=== PATIENT | female | born 1950 | race Caucasian/White ===

== ENCOUNTER 2017-03-03 20:02 | Inpatient (IN) | payer OTHER ==
[~2017-03-03] VITALS: Ht 160 cm; Wt 75.2 kg
--- NOTE | ~2017-03-03 | HC ---
[facility] [place] [address] CONSULTATION Name: JIMBO BURR Room #: 201-P [facility] IN M.R.#: [id number] Admission: 03/03/17 Attend Phys: Ryder Lizarraga MD Discharge: 03/05/17 Date of : 52 Report #: [id number] THIS REPORT FOR: //name// CC: ALESSANDRO physician/PCP Ryder Lizarraga DATE OF SERVICE: 03/03/2017 REASON FOR CONSULTATION: Elevated sodium. HISTORY OF PRESENT ILLNESS: The patient is known to have frontal lobe dementia and is not able to provide me with the history. Most of the details of the history were obtained from the medical charts. She is nonverbal at baseline. She presented with what was described as mental status changes. I really do not know what her baseline is, but there was a description that she was leaning on the left side while walking back from the dinner area. They reported some falls. On presentation to the emergency room, she was found to have hypernatremia, thus mandating a nephrology consultation. MEDICATIONS: 1. Trazodone. 2. Melatonin. 3. Oxybutynin. PAST MEDICAL HISTORY: 1. Frontal lobe dementia. 2. Remote history of acute respiratory failure with what was described isopropyl alcohol ingestion. 3. Acute kidney injury. FAMILY HISTORY: Unobtainable given the patient's mental status. SOCIAL HISTORY: She resides in a nursing facility. No reported drug or alcohol abuse. There is a history of isopropyl ingestion back on 08/27 and this was incidental. REVIEW OF SYSTEMS: Given the patient's mental status, completely unobtainable. PHYSICAL EXAMINATION: GENERAL: The patient was disoriented to place, time and person. VITAL SIGNS: Blood pressure 140/93 and temperature 36.6. HEAD AND NECK: Dry mucous membrane. CHEST: No crackles. CARDIOVASCULAR: Regular with no rub detected. ABDOMEN: Soft, nontender. No hepatosplenomegaly. LOWER EXTREMITIES: No edema. [address] [address] CONSULTATION Name: JIMBO BURR Room #: 201-P [facility] IN ..#: [id number] Admission: 03/03/17 Attend Phys: Ryder Lizarraga MD Discharge: 03/05/17 Date of : 52 Report #: [id number] LABORATORY DATA: 1. Urine is significant for nitrites. Culture is still pending. 2. Sodium is 158. 3. Creatinine is 1.8. Looking at her baseline, she was discharged from this facility with a creatinine of 1.7. ASSESSMENT, IMPRESSION AND PLAN: 1. Acute kidney injury. 2. Hypernatremia due to lack of access to free water. 3. Remote history of isopropyl incidental ingestion. 4. Discontinue D5 half normal. 5. Initiate free D5W. 6. Strict input and output. 7. Avoid nephrotoxins. 8. Follow urine culture. 9. Adjust medications accordingly. 10. We will continue to follow along. <ELECTRONICALLY SIGNED> By: Jeanette Lyon MD 03/09/17 08 8 Jeanette Lyon MD /nt
--- NOTE | ~2017-03-03 | EKG ---
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
--- NOTE | ~2017-03-03 | EKG ---
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 : 1950 Requested By: Boaz Nuno Order Number: [id number] MD: King Mcneal Measurements Intervals [place] Rate: 100 P: 55 MA: 115 QRS: -6 QRSD: 81 T: 87 QT: 329 QTc: 425 Interpretive Statements Sinus tachycardia Atrial premature complex Nonspecific ST segment abnormalities Baseline wander in lead(s) V6 Compared to ECG 08/27/2016 17:25:57 No significant change Electronically Signed On 03-04-2017 15:46:01 CDT by King Mcneal [email or web address] <ELECTRONICALLY SIGNED> By: King Mcneal MD 03/04/17 1546 08 08 King Mcneal MD /[facility]
--- NOTE | ~2017-03-03 | EKG ---
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
[~2017-03-03 20:02] MED LIST: AUGMENTIN 875875 MG PO
[2017-03-03 20:04] VITALS: BP 174/79
[2017-03-03 20:34] LABS: HEMATOCRIT 38.9 % (37.0-47.0); HEMOGLOBIN 12.9 gm/dL (12.0-15.0); MCH 31.4 pg (26.0-34.0); MCHC 33.1 g/dL (28.0-37.0); RBC 4.09 mil/uL (4.20-5.00); RDW 15.6 % (10.5-14.5); WBC 9.2 thou/uL (4.0-11.0)
[2017-03-03 20:43] LABS: ANION GAP 10 mmol/L (7-16); BUN 46 mg/dL (7-18); CALCIUM 9.2 mg/dL (8.5-10.1); CHLORIDE 122 mmol/L (98-107); CO2 26 mmol/L (21-32); CREATININE 1.8 mg/dL (0.6-1.0); GLUCOSE 123 mg/dL (74-106); POTASSIUM 3.9 mmol/L (3.5-5.1); SODIUM 158 mmol/L (136-145)
[2017-03-03 20:53] LABS: TROPONIN-I < 0.04 ng/mL (<0.04-0.07)
[2017-03-03 20:54] LABS: APTT 19.4 Seconds (24.5-32.8)
[2017-03-03 21:16] LABS: URINE BILIRUBIN NEGATIVE (Negative); URINE BLOOD TRACE (Negative); URINE COLOR YELLOW; URINE GLUCOSE-RANDOM* NEGATIVE (Negative); URINE KETONES NEGATIVE (Negative); URINE LEUKOCYTES-REFLEX TRACE (Negative); URINE PROTEIN (DIPSTICK) 1+ (Negative); URINE SPECIFIC GRAVITY >= 1.030 (1.003-1.035); URINE UROBILINOGEN 0.2 E.U./dl (0.2-1.0)
[2017-03-03 21:21] LABS: CASTS None Seen /LPF (None Seen); SQUAMOUS 0-3 Few /LPF (0-3); URINE RBC 0-2 Rare /HPF (0-2); URINE WBC-REFLEX 6-15 Few /HPF (0-5)
[2017-03-03 21:22] LABS: CRYSTALS None Seen /LPF (None Seen)
[2017-03-03] MEDS ORDERED: DONEPEZIL HCL10 MG (21:49)
[2017-03-03] MEDS ORDERED: TRAZODONE HCL100 MG PO (21:50)
[2017-03-03] MEDS ORDERED: SEROQUEL 50 MG50 MG PO (21:50)
[2017-03-03] MEDS ORDERED: MELATIN3 MG PO (21:51)
[2017-03-03] MEDS ORDERED: OXYBUTYNIN 5 MG5 M2 PO (21:51)
[2017-03-03 23:45] VITALS: BP 137/72
[2017-03-04 00:40] VITALS: BP 150/93
[2017-03-04 03:45] VITALS: BP 140/93
[2017-03-04 09:09] VITALS: BP 138/83
[2017-03-04 10:57] LABS: FOLIC ACID 19.8 ng/mL (8.6-58.9)
[2017-03-04 11:25] VITALS: BP 129/76
[2017-03-04 15:40] VITALS: BP 128/73
[2017-03-04 19:14] VITALS: BP 137/74
[2017-03-05 03:04] LABS: HEMATOCRIT 34.6 % (37.0-47.0); HEMOGLOBIN 11.6 gm/dL (12.0-15.0); MCH 31.1 pg (26.0-34.0); MCHC 33.6 g/dL (28.0-37.0); MCV 92.5 fL (80.0-100.0); RBC 3.74 mil/uL (4.20-5.00); RDW 14.4 % (10.5-14.5); WBC 11.1 thou/uL (4.0-11.0)
[2017-03-05 03:08] VITALS: BP 144/81
[2017-03-05 03:20] LABS: ALBUMIN 2.8 g/dL (3.4-5.0); CALCIUM 8.4 mg/dL (8.5-10.1); PHOSPHORUS 4.2 mg/dL (2.5-4.9); POTASSIUM 3.4 mmol/L (3.5-5.1); TOTAL BILIRUBIN 0.5 mg/dL (<0.1-1.0); TOTAL PROTEIN 6.3 g/dL (6.4-8.2)
[2017-03-05 08:00] VITALS: BP 128/104
[2017-03-05] MEDS ORDERED: CEFUROXIME500 MG PO (11:29)
== END 2017-03-05 16:30 | DRG 682 ==
LOC: ER 20:02 → EROBS 23:17 → 2N 23:18
PROVIDERS: Emergency Medicine; Nurse Practitioner Family; Psychiatry & Neurology Neurology
DX: N17.9 Acute kidney failure, unspecified (principal); E43 Unspecified severe protein-calorie malnutrition; R57.1 Hypovolemic shock; G93.41 Metabolic encephalopathy; N39.0 Urinary tract infection, site not specified; E87.0 Hyperosmolality and hypernatremia; F03.90 Unspecified dementia, unspecified severity, without behavioral disturbance, psychotic disturbance, mood disturbance, and anxiety; N18.9 Chronic kidney disease, unspecified; Z68.29 Body mass index [BMI] 29.0-29.9, adult
CPT/HCPCS: 10081

== ENCOUNTER 2017-08-04 21:26 | Emergency (ER) | payer OTHER ==
[~2017-08-04] VITALS: Ht 157.5 cm; Wt 72.6 kg
[~2017-08-04 21:26] MED LIST changes: +CEFUROXIME500 MG PO; +DONEPEZIL HCL10 MG; +MELATIN3 MG PO; +OXYBUTYNIN 5 MG5 M2 PO; +SEROQUEL 50 MG50 MG PO; +TRAZODONE HCL100 MG PO
[2017-08-04 22:00] LABS: URINE BILIRUBIN NEGATIVE (Negative); URINE BLOOD NEGATIVE (Negative); URINE CLARITY CLEAR; URINE COLOR YELLOW; URINE GLUCOSE-RANDOM* NEGATIVE (Negative); URINE KETONES TRACE (Negative); URINE LEUKOCYTES-REFLEX NEGATIVE (Negative); URINE PROTEIN (DIPSTICK) NEGATIVE (Negative); URINE SPECIFIC GRAVITY >= 1.030 (1.005-1.035); URINE UROBILINOGEN 0.2 E.U./dl (0.2-1.0)
[2017-08-04 22:01] LABS: ABSOLUTE NEUTROPHILS 3.9 thou/uL (1.4-8.2); BASOPHILS 1.1 % (0.0-2.0); HEMATOCRIT 37.9 % (37.0-47.0); HEMOGLOBIN 12.8 gm/dL (12.0-15.0); LYMPHOCYTES 34.8 % (24.0-44.0); MCH 32.1 pg (26.0-34.0); MCHC 33.8 g/dL (28.0-37.0); MCV 94.8 fL (80.0-100.0); MONOCYTES 8.2 % (1.0-8.0); PLATELET COUNT 243 thou/uL (150-400); POLYS 53.9 % (36.0-66.0); RDW 13.7 % (10.5-14.5); WBC 7.2 thou/uL (4.0-11.0)
[2017-08-04 22:05] LABS: URINE NITRITE-REFLEX POSITIVE (Negative)
[2017-08-04 22:12] LABS: ANION GAP 12 mmol/L (7-16); BUN 25 mg/dL (7-18); CALCIUM 9.7 mg/dL (8.5-10.1); CHLORIDE 104 mmol/L (98-107); CO2 24 mmol/L (21-32); CREATININE 1.2 mg/dL (0.6-1.0); GLUCOSE 122 mg/dL (74-106); POTASSIUM 3.7 mmol/L (3.5-5.1); SODIUM 140 mmol/L (136-145)
[2017-08-04 22:14] LABS: CASTS None Seen /LPF (None Seen); MUCUS 0-3 Light strn/LPF (None Seen); SQUAMOUS 0-3 Few /LPF (0-3); URINE WBC-REFLEX 0-5 Rare /HPF (0-5)
[2017-08-04 22:15] LABS: CRYSTALS None Seen /LPF (None Seen); URINE RBC 0-2 Rare /HPF (0-2)
[2017-08-04 22:17] LABS: ALBUMIN 3.4 g/dL (3.4-5.0); DIRECT BILIRUBIN < 0.1 mg/dL (<0.1-0.3); LIPASE 83 U/L (73-393); MAGNESIUM 2.3 mg/dL (1.8-2.4); SGOT 20 U/L (15-37); SGPT 32 U/L (30-65); TOTAL BILIRUBIN 0.2 mg/dL (<0.1-1.0)
[2017-08-04] MEDS ORDERED: KEFLEX500 M1 PO (23:07)
[2017-08-04 23:21] VITALS: BP 120/57
== END 2017-08-04 23:22 | disposition home or self-care (01) ==
LOC: ER 21:26
PROVIDERS: Emergency Medicine
DX: R41.82 Altered mental status, unspecified (principal); N39.0 Urinary tract infection, site not specified; F03.90 Unspecified dementia, unspecified severity, without behavioral disturbance, psychotic disturbance, mood disturbance, and anxiety